=== PATIENT | female | born 2000 | race Two or more races ===

== ENCOUNTER 2021-04-08 18:27 | Emergency (ER) | payer OTHER ==
[~2021-04-08] VITALS: Ht 167.6 cm; Wt 84.8 kg
[2021-04-08] MEDS ORDERED: PRENATABS FA T1 EACH PO (19:47)
== END 2021-04-08 23:19 | disposition home or self-care (01) ==
LOC: ER 18:27
DX: O20.0 Threatened abortion (principal)